=== PATIENT | female | born 1975 | race Caucasian/White ===

== ENCOUNTER 2021-09-11 19:27 | Inpatient (IN) | payer MEDICARE ==
[2021-09-12] MEDS ORDERED: MAG HYDROX/AL HYDROX/SIMETH 30 ML CUP PO PRN (11:08)
[2021-09-12] MEDS ORDERED: MAGNESIUM HYDROXIDE 2,400 MG/10 ML CUP PO PRN (11:08)
[2021-09-12] MEDS ORDERED: LORazepam 1 MG/0.5 ML VIAL IM PRN (11:12)
[2021-09-12] MEDS ORDERED: HALOPERIDOL LACTATE 5 MG/ML 1 ML VIAL IM PRN (11:12)
[2021-09-12] MEDS ORDERED: LORazepam 1 MG TAB PO PRN (11:12)
[2021-09-12] MEDS: ACETAMINOPHEN TAB 325 MG TAB PO PRN ×2 (13:37→21:27)
--- NOTE | 2021-09-12 14:20 | P.HP ---
Psychiatric H&P - . H&P Date: 09/12/21 History & Physical: Allergies Allergy/AdvReac Type Severity Reaction Status Date / Time No Known Allergies Allergy Verified 09/12/21 11:07 Vital Signs Temp 98.3 F 09/12/21 11:17 Pulse 87 09/12/21 11:17 Resp 16 09/12/21 11:17 BP 147/74 09/12/21 11:17 Pulse Ox FiO2 Intake & Output 09/11/21 09/12/21 09/12/21 18:59 06:59 18:59 Weight 48.081 kg 09/12/21 14:20 IDENTIFYING DATA: Patient is a , unemployed, 46-year-old female with significant history of depression and PTSD who presents to the hospital and a petition and certification after an intentional overdose on alcohol and Flexeril. HPI: Patient presented to the hospital on 09/12/2021, brought into this hospital after being transferred from [facility] after being intubated in the ICU for management of an intentional overdose on Flexeril and Cymbalta. The patient reports that she has been feeling recently depressed and overwhelmed in regards to her finances, her chronic medical issues, her inability to work, as well as dealing with the aftermath of losing her 3-1/2-year-old daughter 20 years ago. The patient reports that she felt extremely overwhelmed and began drinking heavily, approximating 12 beers that day. She states that while she was intoxicated, she felt extremely overwhelmed and attempted to kill herself by overdosing on her Zanaflex and Cymbalta. The patient reports that this is the first time she has attempted suicide. In regards other depressive symptoms, the patient reports that she was initially feeling better over the past few days prior to her attempting this overdose however has been experiencing significant symptoms of depression including feelings of helplessness, hopelessness, and sadness. She denies any significant symptoms of bipolar disorder. She reports no periods of excessive energy, grandiosity, racing thoughts. The patient denies any significant symptoms of psychosis. She denies any auditory or visual hallucinations. She denies any paranoia or other delusions. The patient has been on multiple antidepressants in the past and was most recently placed on Cymbalta however, the patient reports that she has been inconsistent with taking her medications that she felt that she was taking too many different medications and wanted to "be off everything." The patient is in agreement for mental health treatment and expresses significant guilt and regret about her overdose. She expresses a strong desire to live out of love for her children and her family. She reports that she has significant social supports. PAST PSYCHIATRIC HISTORY: Patient states that she has been diagnosed with depression and PTSD. He started EMT are with her therapist. The patient recalls being previously prescribed Zoloft and Cymbalta in the past. She states that she has tried other antidepressants but is unable to recall their names. This is the patient's first inpatient psychiatric hospitalization. The patient reports that she has never formally seen a psychiatrist but has been open with therapy. Aside from this overdose attempt, there has been no prior attempts at suicide. PMH: Budd chiari malformation ALLERGIES: NO KNOWN DRUG ALLERGIES CHEMICAL DEPENDENCY HISTORY: The patient reports that she smokes about 7 cigarettes per day. She states that she hasn't drank for a few months prior to her binge drinking during this overdose attempt. She approximates she drank 12 beers that day. She also admits to marijuana edibles for insomnia. FAMILY PSYCHIATRIC/SUBSTANCE USE HISTORY: No reported family psychiatric history. SOCIAL HISTORY: Patient was born and raised in [place]. The patient currently receives disability. She attended some college. 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 She was in 1999 and was in 2018. She has a 20-year-old son. She had a 3-1/2-year-old daughter who when the patient was 21 years old. MENTAL STATUS EXAM: General Appearance: Patient appears to be stated age is alert, directable, and attempts to cooperate. Patient appears to have slightly disheveled hygiene and grooming. Behavior: Patient is seated without any agitated behavior. Patient is tearful throughout the interview. Speech: Patient's speech is fluent and nonpressured. Repetitive and ruminative. Mood/Affect: Patient reports their mood is depressed, affect is congruent and tearful. Suicidality/Homicidality: Patient is currently denying any suicidal or homicidal ideation. Perceptions: Patient denies any visual hallucinations and denies any auditory hallucinations Though content/process: There is no evidence of any delusional thought content and thought process is linear and goal-directed. Excessive feelings of guilt. Memory and concentration: AOX3, grossly intact for the purposes of this session. Can spell "WORLD" backwards Judgment and insight: Fair STRENGTHS/WEAKNESSES: Strength is that the patient is resilient and reports good social supports. Weakness is that the patient has financial difficulties and multiple medical problems. INTELLECT: average IMPRESSIONS: Major depressive disorder, recurrent, severe Posttraumatic stress disorder PLAN: -Patient is admitted under voluntary status to MHU for stabilization of psychiatric symptoms and safety. Patient signed adult voluntary form and medication consent and is placed in patient's chart. -Medications : Will start patient on Clonidine 0.1 mg by mouth twice a day for PTSD Cymbalta 30 mg by mouth twice a day for depression/anxiety/PTSD -Ativan and Haldol PRN for agitation/aggression -Patient was counselled on substance abuse and desired to cut back on use -Patient was informed of the risks, benefits and side effects of the medication and patient verbally consented to taking the medications. Patient signed med consent form and was placed in chart. -Internal Medicine consult to perform medical evaluation and physical. -NRT - nicotine patch -SW on board for discharge planning. Encourage patient to participate in groups to work on coping skills.
[2021-09-12] MEDS: DULoxetine HCL 30 MG CAPSULE.DR PO SCH (21:27)
[2021-09-12] MEDS: cloNIDine HCL 0.1 MG TAB PO SCH (21:27)
[2021-09-13] MEDS: cloNIDine HCL 0.1 MG TAB PO SCH ×2 (09:02→21:16)
[2021-09-13] MEDS: DULoxetine HCL 30 MG CAPSULE.DR PO SCH ×2 (09:02→21:16)
[2021-09-13] MEDS: ACETAMINOPHEN TAB 325 MG TAB PO PRN ×3 (09:02→21:16)
[2021-09-13 11:25] LABS: Basophils # (A) 0.1 k/uL (0-0.2); Basophils % (A) 2 %; Eosinophils # (A) 0.2 k/uL (0-0.7); Eosinophils % (A) 3 %; HCT 43.4 % (34.0-46.0); HGB 13.8 gm/dL (11.4-16.0); Lymphocytes # (A) 2.3 k/uL (1.0-4.8); Lymphocytes % (A) 31 %; MCHC 31.7 g/dL (31.0-37.0); MCV 97.6 fL (80.0-100.0); Mean Platelet Volume 7.2; Monocytes # (A) 0.6 k/uL (0-1.0); Monocytes % (A) 8 %; Neutrophils % (A) 55 %; Platelet Count 703 k/uL (150-450); RBC 4.44 m/uL (3.80-5.40); RDW 12.2 % (11.5-15.5); WBC 7.4 k/uL (3.8-10.6)
[2021-09-13 11:39] LABS: ALT 30 U/L (4-34); AST 25 U/L (14-36); African American GFR (CKD) >90 (>60 ml/min/1.73 sqM); Albumin 4.3 g/dL (3.5-5.0); Alkaline Phosphatase 103 U/L (38-126); Anion Gap 6 mmol/L; Bilirubin, Delta 0.2 mg/dL (0.0-0.2); Bilirubin,Unconjugated 0.2 mg/dL (0.0-1.1); Blood Urea Nitrogen 18 mg/dL (7-17); Calcium 9.5 mg/dL (8.4-10.2); Carbon Dioxide 33 mmol/L (22-30); Chloride 99 mmol/L (98-107); Glucose 51 mg/dL (74-99); Non-African American GFR(CKD) >90 (>60 ml/min/1.73 sqM); Potassium 4.7 mmol/L (3.5-5.1); Sodium 138 mmol/L (137-145); Total Bilirubin 0.4 mg/dL (0.2-1.3); Total Protein 7.5 g/dL (6.3-8.2)
[2021-09-13 11:54] LABS: Glucose,Whole Blood 75 mg/dL (70-110)
--- NOTE | 2021-09-13 12:00 | P.PN ---
Progress Note - Text Progress Note Date: 09/13/21 Interval History: Patient was seen wandering the hallways and was directable and agreeable to speak with conventional underwriter in the office. The patient reports she is feeling significantly better. She is currently not reporting any suicidal or homicidal ideation, intention, and/or plan. She expresses remorse for her suicide attempt. She expresses a strong desire to live and states she has been in contact with her supports. She denies any auditory or visual hallucinations. She reports no paranoia or other delusions. She reports she slept well and has been tolerating her medications well. Mental Status Exam: General Appearance: Patient appears to be stated age is alert, directable, and cooperative. Thin build. Multiple tattoos related to her baby daughter. Behavior: Patient is calmly seated without any agitated behavior. Eye contact is appropriate. Speech: Patient's speech is fluent and nonpressured. Mood/Affect: Mood is improving mildly, affect is congruent and constricted. Suicidality/Homicidality: Patient denies having any suicidal or homicidal ideation intent or plan. Perceptions: Patient denies any visual hallucinations and denies any auditory hallucinations Though content/process: There is no evidence of any delusional thought content and thought process is linear and goal-directed. Memory and concentration: AOX3, grossly intact for the purposes of this session Judgment and insight: Improving mildly Assessment Major depressive disorder, recurrent, severe Posttraumatic stress disorder Tobacco Use Disorder Plan: -Patient continues to meet criteria for inpatient psychiatric admission for symptom stabilization and safety. Patient has signed adult voluntary form and medication consent and was placed in patient's chart. -Medications: Clonidine 0.1 mg by mouth twice a day for PTSD Cymbalta 30 mg by mouth twice a day for depression/anxiety/PTSD -When necessary Ativan and Haldol for agitation/aggression. -NRT - nicotine patch -SW on board for discharge planning. Encouraged the patient to participate in milieu.
[2021-09-13 18:53] LABS: Chol/HDL Ratio 4.81 Ratio; LDL Cholesterol,Calculated 171.2 mg/dL (0.0-131.0)
--- NOTE | 2021-09-14 01:29 | P.PN ---
Progress Note - Text Progress Note Date: 09/13/21 Patient refused evaluation
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
[2021-09-14] MEDS: ACETAMINOPHEN TAB 325 MG TAB PO PRN ×2 (09:20→18:31)
[2021-09-14] MEDS: DULoxetine HCL 30 MG CAPSULE.DR PO SCH ×2 (09:21→21:29)
[2021-09-14] MEDS: cloNIDine HCL 0.1 MG TAB PO SCH ×2 (09:21→21:29)
--- NOTE | 2021-09-14 11:53 | P.PN ---
Progress Note - Text Progress Note Date: 09/14/21 Interval History: Patient was seen wandering the hallways and was directable and agreeable to speak with proposal lead writer in the office. Patient continues to report that she is feeling better. She feels like these medications have been helping her feel much more "clear." She is currently denying any suicidal or homicidal ideation, intention, and/or plan. She is not reporting any auditory or visual hallucinations. She is denying any paranoia or other delusions. She has been a dherent to medications and is not endorsing any significant effects at this time. She states that she has been having significant support from her family and has been in contact with them over the phone. She is excited for discharge tomorrow. She has been participant in groups with the high-level participation. Mental Status Exam: Grossly unchanged from yesterday. General Appearance: Patient appears to be stated age is alert, directable, and cooperative. Thin build. Multiple tattoos related to her baby daughter. Behavior: Patient is calmly seated without any agitated behavior. Eye contact is appropriate. Speech: Patient's speech is fluent and nonpressured. Mood/Affect: Mood is improving mildly, affect is congruent and constricted. Suicidality/Homicidality: Patient denies having any suicidal or homicidal ideation intent or plan. Perceptions: Patient denies any visual hallucinations and denies any auditory hallucinations Though content/process: There is no evidence of any delusional thought content and thought process is linear and goal-directed. Memory and concentration: AOX3, grossly intact for the purposes of this session Judgment and insight: Improving mildly Vital Signs Temp 98.1 F 09/13/21 06:38 Pulse 117 H 09/13/21 09:03 Resp 16 09/13/21 06:38 BP 126/75 09/13/21 09:03 Pulse Ox FiO2 Laboratory Results - Last 24 Hours 09/13/21 09/13/21 09/13/21 10:40 10:40 11:52 POC Glucose (mg/dL) 75 POC Glu Director Of Broadcast ID Dilcia Hernandez [address]imated Ave Glu mg/dL 105 Hemoglobin A1c 5.3 Triglycerides 130.00 Cholesterol 249.00 H LDL Cholesterol, Calc 171.2 H VLDL Cholesterol, Calc 26.00 HDL Cholesterol 51.80 Cholesterol/HDL Ratio 4.81 TSH 1.600 Assessment Major depressive disorder, recurrent, severe Posttraumatic stress disorder Tobacco Use Disorder Plan: -Patient continues to meet criteria for inpatient psychiatric admission for symptom stabilization and safety. Patient has signed adult voluntary form and medication consent and was placed in patient's chart. -Medications: Clonidine 0.1 mg by mouth twice a day for PTSD Cymbalta 30 mg by mouth twice a day for depression/anxiety/PTSD -When necessary Ativan and Haldol for agitation/aggression. -NRT - nicotine patch -SW on board for discharge planning. Encouraged the patient to participate in milieu.
[2021-09-15 07:01] VITALS: RESP 16; TEMP 99.3
[2021-09-15] MEDS: DULoxetine HCL 30 MG CAPSULE.DR PO SCH (08:35)
[2021-09-15] MEDS: cloNIDine HCL 0.1 MG TAB PO SCH (08:35)
[2021-09-15 08:36] LABS: HCT 43.8 % (34.0-46.0); HGB 14.1 gm/dL (11.4-16.0); MCH 31.7 pg (25.0-35.0); MCHC 32.2 g/dL (31.0-37.0); MCV 98.5 fL (80.0-100.0); Platelet Count 716 k/uL (150-450); RBC 4.45 m/uL (3.80-5.40); RDW 12.6 % (11.5-15.5); WBC 7.3 k/uL (3.8-10.6)
[2021-09-15] MEDS: ACETAMINOPHEN TAB 325 MG TAB PO PRN (08:36)
[2021-09-15 08:39] VITALS: BP 117/62; PULSE 106
[2021-09-15] MEDS ORDERED: ATORVASTATIN 40 MG TAB PO SCH (09:00)
[2021-09-15] MEDS ORDERED: NICOTINE 21MG/24HR PATCH TRANSDERM SCH (09:00)
--- NOTE | 2021-09-15 14:04 | P.DS ---
Providers Date of admission: 09/12/21 10:45 Expected date of discharge: 09/15/21 Attending physician: Jeffrey Francois MD Consults: 09/12/21 11:08 Consult Physician Routine Consulting Provider: Amaya Colón Consult Reason/Comments: H & P Do you want consulting provider notified?: Yes Primary care physician: Stated None - Discharge Diagnosis(es) (1) Major depressive disorder, recurrent severe without psychotic features Current Visit: Yes Status: Acute Priority: High (2) PTSD (post-traumatic stress disorder) Current Visit: Yes Status: Acute Priority: High (3) Nicotine dependence Current Visit: Yes Status: Acute Priority: Low Hospital Course: Admission HPI: Admission note was completed by Dr Francois "Patient is a , unemployed, 46-year-old female with significant history of depression and PTSD who presents to the hospital and a petition and certification after an intentional overdose on alcohol and Flexeril. Patient presented to the hospital on 09/12/2021, brought into this hospital after being transferred from [facility] after being intubated in the ICU for management of an intentional overdose on Flexeril and Cymbalta. The patient reports that she has been feeling recently depressed and overwhelmed in regards to her finances, her chronic medical issues, her inability to work, as well as dealing with the aftermath of losing her 3-1/2-year-old daughter 20 years ago. The patient reports that she felt extremely overwhelmed and began drinking heavily, approximating 12 beers that day. She states that while she was intoxicated, she felt extremely overwhelmed and attempted to kill herself by overdosing on her Zanaflex and Cymbalta. The patient reports that this is the first time she has attempted suicide. In regards other depressive symptoms, the patient reports that she was initially feeling better over the past few days prior to her attempting this overdose however has been experiencing significant symptoms of depression including feelings of helplessness, hopelessness, and sadness. She denies any significant symptoms of bipolar disorder. She reports no periods of excessive energy, grandiosity, racing thoughts. The patient denies any significant symptoms of psychosis. She denies any auditory or visual hernández llucinations. She denies any paranoia or other delusions. The patient has been on multiple antidepressants in the past and was most recently placed on Cymbalta however, the patient reports that she has been inconsistent with taking her medications that she felt that she was taking too many different medications and wanted to "be off everything." The patient is in agreement for mental health treatment and expresses significant guilt and regret about her overdose. She expresses a strong desire to live out of love for her children and her family. She reports that she has significant social supports." Hospital course: Upon admission to the unit patient was directable and agreeable to commence treatment and signed adult voluntary form. Patient got along well with other patients on the unit and followed unit protocol. Patient was compliant with the medications and denied any side effects throughout hospital course. Patient was started on Cymbalta 30 mg twice a day for depression/anxiety/PTSD, clonidine 0.1 mg twice a day for PTSD symptoms. Patient spoke of her stressors and engaged in therapy both group and individual. Patient was also seen by medical team for history and physical exam. Throughout the course of the hospitalization patient gradually improved with regards to mood, anxiety, sleep and became more future oriented with improved insight and judgment. On the day of discharge patient denied any suicidal or homicidal ideations intent or plan denied any auditory or visual hallucinations. Patient endorsed wanting to live for her health and her future. The patient denied any access to guns or weapons. Patient denied any paranoia and did not endorse any delusions. Patient does not have a significant history of substance abuse was counseled on abstaining from all substances including alcohol and marijuana. Patient was also counseled on the medications and need for regular compliance and was encouraged to follow-up with their outpatient appointment for mental health and also for primary care. Prior to discharge a family meeting will be arranged by social services assistant to answer any questions and ensure safety upon discharge. Mental status exam: General Appearance: Patient appears to be thin, multiple tattoos, glasses, stated age is alert, pleasant, and cooperative. Patient is in no acute distress and has improved hygiene and grooming Behavior: Patient is calmly seated without any agitated behavior. Speech: Patient's speech is fluent and nonpressured. Mood/Affect: Patient reports their mood is "better", affect is congruent and euthymic. Suicidality/Homicidality: Patient denies having any suicidal or homicidal ideation intent or plan. Perceptions: Patient denies any auditory or visual hallucinations. Though content/process: There is no evidence of any delusional thought content and thought process is linear and goal-directed. more future oriented Memory and concentration: AOX3, grossly intact for the purposes of this session. Can spell "WORLD" backwards correctly. Judgment and insight: improved with guarded prognosis Impression: Major depressive disorder, recurrent, severe without psychotic features PTSD Nicotine dependence Plan: -Continue with discharge today as patient has improved and stabilized psychiatrically and is not currently an imminent threat to herself and/or others. -Continue medications: Clonidine 0.1 mg twice a day for PTSD symptoms, Cymbalta 30 mg twice a day for depression/anxiety/PTSD. -Patient was counseled on the need for medication compliance and appropriate follow-up at mental health and also primary care for medical issues. Patient verbalized understanding and agreed. -Social work to arrange for and conduct family meeting to ensure safety upon discharge and answer any questions/concerns. Social work also to arrange for patients follow up appointments for psychiatric care along with follow up with primary care provider. -Patient counseled on abstaining from recreational drugs and marijuana and alcohol. Was informed/educated on the adverse effects on their physical and mental health. Patient verbally agreed and understood. -Patient was instructed to return to the hospital or seek immediate medical care if their psychiatric or medical symptoms do worsen or reoccur. Allergies Allergy/AdvReac Type Severity Reaction Status Date / Time No Known Allergies Allergy Verified 09/12/21 11:07 Laboratory Results WBC 7.3 k/uL (3.8-10.6) 09/15/21 07:50 RBC 4.45 m/uL (3.80-5.40) 09/15/21 07:50 Hgb 14.1 gm/dL (11.4-16.0) 09/15/21 07:50 Hct 43.8 % (34.0-46.0) 09/15/21 07:50 MCV 98.5 fL (80.0-100.0) 09/15/21 07:50 MCH 31.7 pg (25.0-35.0) 09/15/21 07:50 MCHC 32.2 g/dL (31.0-37.0) 09/15/21 07:50 RDW 12.6 % (11.5-15.5) 09/15/21 07:50 Plt Count 716 k/uL (150-450) H 09/15/21 07:50 MPV 7.0 09/15/21 07:50 Neutrophils % 55 % 09/13/21 10:40 Lymphocytes % 31 % 09/13/21 10:40 Monocytes % 8 % 09/13/21 10:40 Eosinophils % 3 % 09/13/21 10:40 Basophils % 2 % 09/13/21 10:40 Neutrophils # 4.0 k/uL (1.3-7.7) 09/13/21 10:40 Lymphocytes # 2.3 k/uL (1.0-4.8) 09/13/21 10:40 Monocytes # 0.6 k/uL (0-1.0) 09/13/21 10:40 Eosinophils # 0.2 k/uL (0-0.7) 09/13/21 10:40 Basophils # 0.1 k/uL (0-0.2) 09/13/21 10:40 Sodium 138 mmol/L (137-145) 09/13/21 10:40 Potassium 4.7 mmol/L (3.5-5.1) 09/13/21 10:40 Chloride 99 mmol/L (98-107) 09/13/21 10:40 Carbon Dioxide 33 mmol/L (22-30) H 09/13/21 10:40 Anion Gap 6 mmol/L 09/13/21 10:40 BUN 18 mg/dL (7-17) H 09/13/21 10:40 Creatinine 0.59 mg/dL (0.52-1.04) 09/13/21 10:40 Est GFR (CKD-EPI)AfAm >90 (>60 ml/min/1.73 sqM) 09/13/21 10:40 Est GFR (CKD-EPI)NonAf >90 (>60 ml/min/1.73 sqM) 09/13/21 10:40 Glucose 51 mg/dL (74-99) L 09/13/21 10:40 POC Glucose (mg/dL) 75 mg/dL (70-110) 09/13/21 11:52 POC Glu Promotion Manager ID Dilcia Hernandez 09/13/21 11:[address] Glu mg/dL 105 09/13/21 10:40 Hemoglobin A1c 5.3 % (0.0-6.0) 09/13/21 10:40 Calcium 9.5 mg/dL (8.4-10.2) 09/13/21 10:40 Total Bilirubin 0.4 mg/dL (0.2-1.3) 09/13/21 10:40 Conjugated Bilirubin 0.0 mg/dL (0.0-0.3) 09/13/21 10:40 Unconjugated Bilirubin 0.2 mg/dL (0.0-1.1) 09/13/21 10:40 Delta Bilirubin 0.2 mg/dL (0.0-0.2) 09/13/21 10:40 AST 25 U/L (14-36) 09/13/21 10:40 ALT 30 U/L (4-34) 09/13/21 10:40 Alkaline Phosphatase 103 U/L (38-126) 09/13/21 10:40 Total Protein 7.5 g/dL (6.3-8.2) 09/13/21 10:40 Albumin 4.3 g/dL (3.5-5.0) 09/13/21 10:40 Triglycerides 130.00 mg/dL (0.00-149.00) 09/13/21 10:40 Cholesterol 249.00 mg/dL (0.00-200.00) H 09/13/21 10:40 LDL Cholesterol, Calc 171.2 mg/dL (0.0-131.0) H 09/13/21 10:40 VLDL Cholesterol, Calc 26.00 mg/dL (5.00-40.00) 09/13/21 10:40 HDL Cholesterol 51.80 mg/dL (40.00-60.00) 09/13/21 10:40 Cholesterol/HDL Ratio 4.81 Ratio 09/13/21 10:40 TSH 1.600 mIU/L (0.465-4.680) 09/13/21 10:40 Vital Signs Temp 99.3 F 09/15/21 06:41 Pulse 106 H 09/15/21 08:38 Resp 16 09/15/21 08:38 BP 117/62 09/15/21 08:38 Pulse Ox 99 09/15/21 08:38 FiO2 Patient Condition at Discharge: Stable Plan - Discharge Summary New Discharge Prescriptions: New cloNIDine HCL [Catapres] 0.1 mg PO BID 30 Days tab DULoxetine HCL [Cymbalta] 30 mg PO BID 30 Days cap Nicotine 21Mg/24Hr Patch [Habitrol] 1 patch TRANSDERM DAILY 14 Days patch Atorvastatin [Lipitor] 40 mg PO DAILY 30 Days tab Discharge Medication List Atorvastatin [Lipitor] 40 mg PO DAILY 30 Days tab 09/15/21 [Rx] DULoxetine HCL [Cymbalta] 30 mg PO BID 30 Days cap 09/15/21 [Rx] Nicotine 21Mg/24Hr Patch [Habitrol] 1 patch TRANSDERM DAILY 14 Days patch 09/15/21 [Rx] cloNIDine HCL [Catapres] 0.1 mg PO BID 30 Days tab 09/15/21 [Rx] Follow up Appointment(s)/Referral(s): [facility] [Other] [facility]02[facility] 10[facility]00 [facility] Patient Instructions/Handouts: How to Stop Smoking (DC), Depression (DC), Post Traumatic Stress Disorder (DC) Discharge Disposition: HOME SELF-CARE
== END 2021-09-15 14:20 | disposition home or self-care (01) | DRG 885 ==
LOC: 3MHU 09-12 10:45
PROVIDERS: ADMIT Psychiatry & Neurology Psychiatry; ATTEND Psychiatry & Neurology Psychiatry
DX: F33.2 Major depressive disorder, recurrent severe without psychotic features (principal); D75.839 Thrombocytosis, unspecified; T51.92XA Toxic effect of unspecified alcohol, intentional self-harm, initial encounter; T42.8X2A Poisoning by antiparkinsonism drugs and other central muscle-tone depressants, intentional self-harm, initial encounter; T43.212A Poisoning by selective serotonin and norepinephrine reuptake inhibitors, intentional self-harm, initial encounter; Q07.00 Arnold-Chiari syndrome without spina bifida or hydrocephalus; F43.10 Post-traumatic stress disorder, unspecified; F12.10 Cannabis abuse, uncomplicated; F10.10 Alcohol abuse, uncomplicated; G43.909 Migraine, unspecified, not intractable, without status migrainosus; E78.5 Hyperlipidemia, unspecified; G47.00 Insomnia, unspecified; F17.210 Nicotine dependence, cigarettes, uncomplicated; Z71.6 Tobacco abuse counseling; Z79.899 Other long term (current) drug therapy; Z56.0 Unemployment, unspecified; Z71.41 Alcohol abuse counseling and surveillance of alcoholic; Z71.51 Drug abuse counseling and surveillance of drug abuser
CPT/HCPCS: 80053; 80061; 82248; 83036; 84443; 85025; 85027